=== PATIENT | male | born 1995 | race Caucasian/White ===

== ENCOUNTER → 2021-01-30 15:06 | Outpatient (BNVA) | payer OTHER, SELFPAY | PROVIDERS: Visit Provider Registered Nurse Neonatal Intensive Care | DX: M79.605 Pain in left leg (principal) | CPT/HCPCS: 73590; 73610 ==

== ENCOUNTER 2022-02-08 09:19 | Outpatient (CLI) | payer OTHER, SELFPAY ==
--- NOTE | 2022-02-08 09:25 | XR_ITS ---
WS: [id number] Left knee, 3 views, 02/08/2022 Clinical Data: left ankle Comparison: None. Findings: No fractures or dislocations are seen. The joint spaces are normal. The patella is intact. The soft t issues are unremarkable. XR/XR knee LT 3V* [id number] Impression: Negative left knee. Kellgren-Roman Classification: grade 0 (none): definite absence of x-ray kavitha nges of osteoarthritis
--- NOTE | 2022-02-08 09:25 | XR_ITS ---
WS: [id number] Left ankle, 3 views, 02/08/2022 Clinical Data: left knee pain Comparison: None. Findings: No fractures or dislocations are seen. The ankle mortise is normal. The talus and calcaneus are unrem arkable. No soft tissue swelling over the medial or lateral malleolus is seen. XR/XR ankle LT min 3V* [id number] Impression: Negative left ankle.
== END 2022-02-08 09:20 | disposition home or self-care (01) ==
LOC: RAD 09:21
PROVIDERS: Visit Provider Clinical Nurse Specialist Adult Health
DX: M25.562 Pain in left knee (principal); M25.572 Pain in left ankle and joints of left foot
CPT/HCPCS: 73562; 73610

== ENCOUNTER 2022-02-28 07:54 | Outpatient (CLI) | payer OTHER, SELFPAY ==
--- NOTE | 2022-02-28 08:00 | MR_ITS ---
WS: [id number] MRI LEFT KNEE HISTORY: Pain, no injury. COMPARISON: Radiograph 02/08/2022 Anterior cruciate ligament: Abnormal signal involving the ACL. There is increased intermediate signal surrounding the mid ACL and there is loss of the normal fibers. Intermediate signal is lobulated ext ending both anterior and posterior to the mid ACL. Favor this is probably a partial tear with fibrosi s/scar formation and healing. No acute edema. Posterior cruciate ligament: Intact. Medial collateral ligament: Intact. Posterior lateral corner structures: Intact. Medial menisci: Intact. Normal signal, size and shape. Lateral meniscus: Intact. Normal signal, size and shape. Extensor mechanism: Distal quadriceps tendon and patellar tendons are intact. Fluid and soft tissue: No joint effusion. No Cannon's cyst. Osseous and articular structures: Patellofemoral compartment: Normal. Medial compartment: Normal. Lateral compartment: Normal. MR/MR knee LT wo con* [id number] IMPRESSION: 1. Abnormal ACL. ACL is very thin and there is increased intermediate soft tis mayuri surrounding the central portion of the ACL. Favor this is probably a chroni laquita torn healed ACL with fibrosis and scarring. 2. No meniscal tears. No marrow edema.
== END 2022-02-28 07:55 | disposition home or self-care (01) ==
LOC: RAD 07:55
PROVIDERS: PCP Family Medicine; Visit Provider Clinical Nurse Specialist Adult Health
DX: M25.562 Pain in left knee (principal)
CPT/HCPCS: 73721